=== PATIENT | female | born 1975 | race African-American/Black ===

== ENCOUNTER 2017-12-21 20:35 | Emergency (ER) | payer BC ==
[~2017-12-21] VITALS: Ht 165.1 cm; Wt 61.7 kg
[2017-12-21] MEDS ORDERED: KETOROLAC TROMETHAMINE 30 MG INJ ONE (21:29)
[2017-12-21] MEDS ORDERED: KETOROLAC TROMETHAMINE 30 MG INJ IM ONE (21:30)
--- NOTE | 2017-12-21 21:42 | NUR ---
Pain on left lower back down to left knee started Satuday, got progressively worse through today. Pt denies CP, SOB, dizziness, n/v, no other complaints, minor distress noted with movement.
--- NOTE | 2017-12-21 21:48 | NUR ---
Gave pt RX and d/c instructions, verbalized understanding.
== END 2017-12-21 21:52 | disposition home or self-care (01) ==
LOC: ER 20:37
DX: M54.42 Lumbago with sciatica, left side (principal)
CPT/HCPCS: 96372; 99283; A4663; J1885

== ENCOUNTER 2017-12-29 20:04 | Emergency (ER) | payer BC ==
[~2017-12-29] VITALS: Ht 165.1 cm; Wt 61.7 kg
--- NOTE | 2017-12-29 20:22 | NUR ---
PT A/OX4, RESPONSIVE TO VERBAL AND TACTILE STIMULI. PT C/O CONSTIPATION X 10 DAYS. ABD IS NON-DISTENDED IN APPEARANCE, BOWEL SOUNDS ACTIVE, FIRM TO TOUCH. PT DENIES PAIN, C/P, SOB, N/V/D, DIZZINESS, HEADACHE. PT SELF-AMBULATED WITHOUT DIFFICULTY. VSS.
--- NOTE | 2017-12-29 20:22 | NUR ---
WILLIAM LOPEZ AT BEDSIDE.
--- NOTE | 2017-12-29 20:38 | NUR ---
XRAY AT BEDSIDE.
[2017-12-29] MEDS ORDERED: MAGNESIUM CITRATE 296 ML BOTTLE ONE (20:44)
[2017-12-29] MEDS ORDERED: MAGNESIUM HYDROXIDE 30 ML LIQUID UDC ONE (20:44)
[2017-12-29] MEDS: MAGNESIUM CITRATE 296 ML BOTTLE PO ONE (20:55)
[2017-12-29] MEDS: MAGNESIUM HYDROXIDE 30 ML LIQUID UDC PO ONE (20:55)
[2017-12-29 20:57] VITALS: BP 114/70
--- NOTE | 2017-12-29 20:58 | NUR ---
Patient discharged to home in stable conditon. Written and verbal after care instructions given. Patient verbalizes understanding of instructions. ALL BELONGINGS W/ PT. PT SELF-AMBULATED WITHOUT DIFFICULTY.
== END 2017-12-29 20:59 | disposition home or self-care (01) ==
LOC: ER 20:06
DX: K59.00 Constipation, unspecified (principal)
CPT/HCPCS: 74021; A4663

== ENCOUNTER 2019-04-06 21:22 | Emergency (ER) | payer BC ==
[~2019-04-06] VITALS: Ht 165.1 cm; Wt 65.8 kg
[2019-04-06 22:17] VITALS: BP 135/80
--- NOTE | 2019-04-06 22:17 | NUR ---
Patient discharged to home in stable conditon. Written and verbal after care instructions given. Patient verbalizes understanding of instructions. Patient ambulating with steady gait
== END 2019-04-06 22:17 | disposition home or self-care (01) ==
LOC: ER 21:22
DX: R09.81 Nasal congestion (principal); R09.82 Postnasal drip
CPT/HCPCS: A4663